=== PATIENT | female | born 1975 | race Caucasian/White ===

== ENCOUNTER 2016-10-30 23:18 | Emergency (ER) | payer MEDICAID ==
[2015-12-14 04:03] VITALS: BMI 31.1
[~2016-10-30 23:18] MED LIST: BENTYL10 MG PO; CITRATE OF MAG300 ML PO; COLACE100 MG PO; DULCOLAX10 MG/SUPP RC; ESGIC TABLET1 TAB PO; HYDROCODONE-APA1 TAB PO; KLONOPIN0.5 MG PO; PHENERGAN25 M1 PO; PROTONIX40 MG PO; ULTRAM50 MG PO; ZOFRAN ODT4 MG/UDTAB
== END 2016-10-31 01:35 | disposition home or self-care (01) ==
LOC: D.ER 23:18
DX: Z03.89 Encounter for observation for other suspected diseases and conditions ruled out (principal); V43.52XA Car driver injured in collision with other type car in traffic accident, initial encounter; Y93.89 Activity, other specified; Y92.481 Parking lot as the place of occurrence of the external cause

== ENCOUNTER 2018-08-05 22:41 | Emergency (ER) | payer MEDICAID ==
[2018-08-05 23:50] LABS: BASOPHILS 0.3 % (0-2); EOSINOPHILS 1.3 % (0-7); HEMATOCRIT 42.1 % (36.0-48.0); HEMOGLOBIN 14.3 g/dL (12-16); IMMATURE GRANULOCYTES 0.7 % (0-5); LYMPHOCYTES 29.3 % (15-50); MCV 97.2 fL (80.0-100.0); MEAN PLATELET VOLUME 9.7 fL (7.4-10.4); MONOCYTES 6.2 % (2-11); NEUTROPHILS 62.2 % (40-80); PLATELET COUNT 278 10x3/uL (130-400); RBC 4.33 10x6/uL (4.00-5.40); RDW 13.6 % (11.5-14.5)
[2018-08-06 00:03] LABS: ALBUMIN 3.4 g/dL (3.4-5.0); ALKALINE PHOSPHATASE 109 U/L (46-116); ALT (SGPT) 19 U/L (10-68); BILIRUBIN - TOTAL 0.12 mg/dL (0.2-1.3); CALC OSMOLALITY 277 mosm/kg (275-300); CARBON DIOXIDE 23.1 mmol/L (21.0-32.0); CHLORIDE - SERUM 103 mmol/L (98-107); CREATININE - SERUM 0.8 mg/dL (0.6-1.3); GLUCOSE 132 mg/dL (74-106); PROTEIN - SERUM 7.1 g/dL (6.4-8.2); SODIUM 138 mmol/L (136-145); UREA NITROGEN 13 mg/dL (7-18); eGFR NON AFRICAN AMERICAN 83 mL/min (90-120)
== END 2018-08-06 01:11 | disposition home or self-care (01) ==
LOC: D.ER 22:41
PROVIDERS: Emergency Medicine
DX: N64.4 Mastodynia (principal); F17.200 Nicotine dependence, unspecified, uncomplicated

== ENCOUNTER → 2018-08-21 15:19 | Outpatient (CLI) | payer MEDICAID ==
[2018-08-05 22:47] VITALS: BMI 32.6
[~2018-08-21 15:19] MED LIST changes: +PHENERGAN25 MG; +PROZAC20 MG; +TORADOL10 MG PO; +ZOFRAN4 MG
== END | disposition home or self-care (01) ==
LOC: D.MAMMO 15:19
DX: Z12.31 Encounter for screening mammogram for malignant neoplasm of breast (principal)

== ENCOUNTER 2018-11-11 00:15 | Emergency (ER) | payer BC ==
[~2018-11-11] VITALS: Ht 157.5 cm; Wt 81.8 kg
[2018-11-11 00:27] VITALS: Ht 157.5 cm; Wt 81.8 kg
[2018-11-11] MEDS ORDERED: CYCLOBENZAPRINE10 MG PO (00:57)
[2018-11-11 01:28] VITALS: BP 150/84
== END 2018-11-11 01:28 | disposition home or self-care (01) ==
LOC: D.ER 00:15
DX: M54.5 Low back pain (principal)

== ENCOUNTER 2021-02-03 19:32 | Emergency (ER) | payer OTHER ==
[~2021-02-03] VITALS: Ht 157.5 cm; Wt 62.7 kg
[~2021-02-03 19:32] MED LIST changes: +CYCLOBENZAPRINE10 MG PO
[2021-02-03 19:37] VITALS: Ht 157.5 cm; Wt 62.7 kg
[2021-02-03 20:09] LABS: BASOPHILS 1.3 % (0-2); HEMATOCRIT 42.6 % (36.0-48.0); HEMOGLOBIN 14.4 g/dL (12-16); LYMPHOCYTES 31.3 % (15-50); MCH 32.2 pg (26.0-34.0); MCHC 33.8 g/dL (31.0-37.0); MCV 95.3 fL (80.0-100.0); MEAN PLATELET VOLUME 7.1 fL (7.4-10.4); MONOCYTES 6.1 % (2-11); NEUTROPHILS 59.3 % (40-80); RBC 4.47 10x6/uL (4.00-5.40); RDW 13.5 % (11.5-14.5); WBC 11.2 10x3/uL (4.8-10.8)
[2021-02-03 20:20] LABS: APTT 27.7 SECONDS (22.8-39.4); INR 1.04 (0.85-1.17); PROTIME 12.6 SECONDS (11.6-15.0)
[2021-02-03 20:21] LABS: D-DIMER-QUANTITATIVE < 0.27 ug/mLFEU (0.20-0.54)
[2021-02-03 20:26] LABS: CALC OSMOLALITY 279 mosm/kg (275-300); CALCIUM 8.8 mg/dL (8.5-10.1); CARBON DIOXIDE 27.3 mmol/L (21.0-32.0); CHLORIDE - SERUM 103 mmol/L (98-107); CREATININE - SERUM 0.8 mg/dL (0.6-1.3); GLUCOSE 95 mg/dL (74-106); POTASSIUM - SERUM 4.2 mmol/L (3.5-5.1); SODIUM 141 mmol/L (136-145); UREA NITROGEN 9 mg/dL (7-18); eGFR NON AFRICAN AMERICAN 82 mL/min (90-120)
[2021-02-03 20:35] LABS: ALBUMIN 4.1 g/dL (3.4-5.0); ALKALINE PHOSPHATASE 115 U/L (30-120); ALT (SGPT) 26 U/L (10-68); BILIRUBIN - TOTAL 0.21 mg/dL (0.2-1.3); MAGNESIUM - SERUM 2.3 mg/dL (1.8-2.4); PROTEIN - SERUM 7.5 g/dL (6.4-8.2)
[2021-02-03 20:36] LABS: TROPONIN-I < 0.017 ng/mL (0.000-0.060)
[2021-02-03 20:38] LABS: UDS - AMPHET NEGATIVE QUAL (NEGATIVE); UDS - BARB NEGATIVE QUAL (NEGATIVE); UDS - BENZO NEGATIVE QUAL (NEGATIVE); UDS - COCAINE NEGATIVE QUAL (NEGATIVE); UDS - OPIATE NEGATIVE QUAL (NEGATIVE); UDS - PCP NEGATIVE QUAL (NEGATIVE); UDS - THC NEGATIVE QUAL (NEGATIVE)
[2021-02-03 20:44] LABS: PLATELET COUNT 374 10x3/uL (130-400)
[2021-02-03 20:48] LABS: BILIRUBIN NEGATIVE (NEGATIVE); KETONE NEGATIVE (NEGATIVE); NITRITE NEGATIVE (NEGATIVE); UROBILINOGEN NORMAL mg/dL (< 2)
[2021-02-03] MEDS ORDERED: DICLOFENAC SODI50 MG PO (20:50)
[2021-02-03 21:19] VITALS: BP 136/82
== END 2021-02-03 21:19 | disposition home or self-care (01) ==
LOC: D.ER 19:32
PROVIDERS: Family Medicine
DX: R68.84 Jaw pain (principal); M79.651 Pain in right thigh